=== PATIENT | male | born 1935 | race Hispanic/Latino ===

== ENCOUNTER → 2018-12-03 | Outpatient (CLI) | payer MEDICARE ==
[~2018-12-03] MED LIST: AMLODIPINE PO; HYDR25TA PO; LEVO25TA54 PO; LOSARTAN PO; METOPROLOL PO; PRAV20TA4 PO
== END | disposition home or self-care (01) ==
LOC: SHCH 11:01
PROVIDERS: ATTEND Internal Medicine Cardiovascular Disease
DX: I10 Essential (primary) hypertension (principal)
CPT/HCPCS: 93306

== ENCOUNTER 2020-02-03 05:51 | Day surgery (SDC) | payer MEDICARE ==
[2020-02-02 13:25] LABS: BASOPHILS % (AUTO) 1.1 % (0.0-5.0); EOSINOPHILS % (AUTO) 3.9 % (0.0-8.0); HEMATOCRIT 45.2 % (42-54); LYMPHOCYTES % (AUTO) 28.1 % (21.0-51.0); MEAN CORPUSCULAR HEMOGLOBIN 28.9 pg (27.0-33.0); MEAN CORPUSCULAR HGB CONC 32.7 g/dL (32.0-36.0); MEAN CORPUSCULAR VOLUME 88.3 fL (79-99); MONOCYTES % (AUTO) 10.7 % (3.0-13.0); NEUTROPHILS % (AUTO) 55.8 % (40.0-77.0); PLATELET COUNT (AUTO) 176 K/uL (130-400); RED BLOOD CELL COUNT(AUTO) 5.12 MIL/uL (4.50-6.20); RED CELL DISTRIBUTION WIDTH 13.7 % (11.0-15.5); WHITE BLOOD COUNT (AUTO) 5.3 K/uL (4.8-10.8)
[2020-02-02 13:37] LABS: INR 1.08 (0.85-1.15); PARTIAL THROMBOPLASTIN TIME 28.5 SEC (26.3-35.5); PROTHROMBIN TIME 11.6 SEC (9.6-11.6)
[2020-02-02 13:39] LABS: CREATININE 1.3 mg/dL (0.5-1.5); POTASSIUM 3.8 mmol/L (3.5-5.1)
[2020-02-02 13:47] VITALS: BP 155/74
[~2020-02-03] VITALS: Ht 162.6 cm; Wt 68.0 kg
[2020-02-03] VITALS (9 sets, daily range): BP systolic 115–159; BP diastolic 65–78
[~2020-02-03 05:51] MED LIST changes: +AMLO-258 PO; -AMLODIPINE PO; -HYDR25TA PO; -LEVO25TA54 PO; +LEVO50TA11 PO; +LEVO75TA10 PO; +LOSA50TA64 PO; -LOSARTAN PO; -METOPROLOL PO
[2020-02-03] MEDS ORDERED: AMLO-258 PO (07:05)
[2020-02-03] MEDS ORDERED: LIDOCAINE HCL 1% MDV 50ML VIAL ONE (07:22)
[2020-02-03] MEDS ORDERED: BUPIVACAINE/PF 0.25% 30ML VIAL IJ ONE (07:22)
[2020-02-03] MEDS ORDERED: CLINDAMYCIN 600 MG/D5% WATER 100 ML IV ONE (07:40)
[2020-02-03] MEDS ORDERED: SODIUM CHLORIDE 0.9% 1000ML 1,000 ML IV SCH (08:00)
[2020-02-03] MEDS ORDERED: FENTANYL CITRATE PF 50 MCG/1 ML 2ML VIAL ONE (08:02)
[2020-02-03] MEDS ORDERED: MIDAZOLAM HCL 1 MG/ML 2ML VIAL ONE (08:02)
[2020-02-03] MEDS ORDERED: IODIXANOL 320 MG/ML 100 ML VIAL ONE (08:02)
[2020-02-03] MEDS ORDERED: SODIUM BICARB 50MEQ 50ML VIAL ONE (08:07)
== END 2020-02-03 13:05 | disposition home or self-care (01) ==
LOC: DAH 05:51
PROVIDERS: ATTEND Internal Medicine Cardiovascular Disease
DX: I44.1 Atrioventricular block, second degree (principal); R00.1 Bradycardia, unspecified; I10 Essential (primary) hypertension; E03.9 Hypothyroidism, unspecified; R53.83 Other fatigue; Z79.82 Long term (current) use of aspirin; Z79.01 Long term (current) use of anticoagulants; Z79.899 Other long term (current) drug therapy
CPT/HCPCS: 33208; 36415; 80048; 85025; 85610; 85730; 93005; A4215; A4216; A4221; A4222; A4223 ×3; A4606; A4663; C1785; C1898 ×2; J2250; J3010; J3490 ×4; Q9967; 99156; 99157

== ENCOUNTER 2020-12-21 07:57 | Day surgery (SDC) | payer MEDICARE ==
[2020-12-17 14:50] LABS: BASOPHILS % (AUTO) 0.8 % (0.0-5.0); EOSINOPHILS % (AUTO) 4.6 % (0.0-8.0); HEMATOCRIT 40.4 % (42-54); LYMPHOCYTES % (AUTO) 19.2 % (21.0-51.0); MEAN CORPUSCULAR HEMOGLOBIN 29.6 pg (27.0-33.0); MEAN CORPUSCULAR HGB CONC 33.4 g/dL (32.0-36.0); MEAN CORPUSCULAR VOLUME 88.6 fL (79-99); MONOCYTES % (AUTO) 12.3 % (3.0-13.0); NEUTROPHILS % (AUTO) 62.7 % (40.0-77.0); PLATELET COUNT (AUTO) 144 K/uL (130-400); RED BLOOD CELL COUNT(AUTO) 4.56 MIL/uL (4.50-6.20); RED CELL DISTRIBUTION WIDTH 14.6 % (11.0-15.5); WHITE BLOOD COUNT (AUTO) 4.8 K/uL (4.8-10.8)
[2020-12-17 14:54] LABS: APPEARANCE,URINE Clear (CLEAR); BILIRUBIN,URINE Negative (NEGATIVE); COLOR,URINE Yellow (YELLOW); GLUCOSE, URINE (UA) Negative (NEGATIVE); KETONES,URINE Trace mg/dL (NEGATIVE); LEUKOCYTE ESTERASE ,URINE Trace (NEGATIVE); NITRATE,URINE Negative (NEGATIVE); OCCULT BLOOD,URINE Negative (NEGATIVE); PH,URINE 6.5 (5.0-8.0); PROTEIN,URINE POS 1+ mg/dL (NEGATIVE)
[2020-12-17 15:09] LABS: POTASSIUM 3.5 mmol/L (3.5-5.1)
[2020-12-17 15:13] LABS: INR 1.15 (0.85-1.15); PROTHROMBIN TIME 12.4 SEC (9.6-11.6)
[2020-12-17 15:14] LABS: PARTIAL THROMBOPLASTIN TIME 29.1 SEC (26.3-35.5)
[2020-12-17 15:15] LABS: BACTERIA,URINE Rare /HPF (None Seen); MUCUS,URINE Few LPF (None Seen); RBC,URINE 0-1 /HPF (0-1); SQUAMOUS EPITHELIAL CELL,UR Rare /HPF (0-2); WBC,URINE 0-1 /HPF (0-1)
[2020-12-20 09:20] VITALS: BP 135/57
[2020-12-21] VITALS (10 sets, daily range): BP systolic 112–149; BP diastolic 59–72
[~2020-12-21] VITALS: Ht 157.5 cm; Wt 65.0 kg
[~2020-12-21 07:57] MED LIST changes: +SODIUM CHLORIDE 0.9% 500ML 500 ML IV SCH
[2020-12-21] MEDS ORDERED: SODIUM CHLORIDE 0.9% 1000ML 1,000 ML IV ONE (09:45)
[2020-12-21] MEDS ORDERED: IOHEXOL-350 50ML VIAL IV ONE (10:35)
[2020-12-21] MEDS ORDERED: IOHEXOL 350 MG/ML 100ML INFUS..BTL IV ONE (10:35)
[2020-12-21] MEDS ORDERED: BIVALIRUDIN 250 MG/VIAL IV ONE (10:35)
[2020-12-21] MEDS ORDERED: NITROGLYCERIN 2 MG/VIAL VIAL IV ONE (10:35)
[2020-12-21] MEDS ORDERED: IOHEXOL-350 75 ML VIAL IV ONE (10:35)
[2020-12-21] MEDS ORDERED: HEPARIN SODIUM 1000UNIT/ML 10ML VIAL ONE (10:35)
[2020-12-21] MEDS ORDERED: SODIUM BICARB 50MEQ 50ML VIAL 50 ML ONE (10:35)
[2020-12-21] MEDS ORDERED: LIDOCAINE HCL 2% 20ML ONE (10:36)
[2020-12-21] MEDS ORDERED: NICARDIPINE HCL 25 MG/10 ML ML IV ONE (10:45)
[2020-12-21] MEDS ORDERED: MIDAZOLAM HCL 1 MG/ML 2ML VIAL ONE (10:46)
[2020-12-21] MEDS ORDERED: FENTANYL CITRATE PF 50 MCG/1 ML 2ML VIAL ONE (10:46)
[2020-12-21] MEDS ORDERED: SODIUM CHLORIDE 0.9% 1000ML 1,000 ML IV SCH (12:15)
== END 2020-12-21 16:10 | disposition home or self-care (01) ==
LOC: DAH 07:57
PROVIDERS: ATTEND Internal Medicine Cardiovascular Disease
DX: I25.119 Atherosclerotic heart disease of native coronary artery with unspecified angina pectoris (principal); I47.2 Ventricular tachycardia; I10 Essential (primary) hypertension; E03.9 Hypothyroidism, unspecified; Z95.0 Presence of cardiac pacemaker; Z79.899 Other long term (current) drug therapy; Z79.890 Hormone replacement therapy; Z79.01 Long term (current) use of anticoagulants; Z98.890 Other specified postprocedural states; Z88.0 Allergy status to penicillin
CPT/HCPCS: 36415; 71045; 80048; 81001; 85025; 85610; 85730; 93005; 93458; A6258; C1769 ×2; C1887; C1894; J1644 ×2; J2250; J3010; J3490 ×4; J7030; Q9965; Q9967 ×2; 99156; 99157; J0583

== ENCOUNTER 2023-08-15 19:31 | Emergency (ER) | payer MEDICARE ==
[~2023-08-15 19:31] MED LIST changes: -SODIUM CHLORIDE 0.9% 500ML 500 ML IV SCH
[2023-08-15 20:23] LABS: BASOPHILS # (AUTO) 0.04 K/uL (0.00-0.20); BASOPHILS % (AUTO) 0.6 % (0.0-5.0); EOSINOPHILS % (AUTO) 3.2 % (0.0-8.0); HEMATOCRIT 41.2 % (42-54); IMMATURE GRANULOCYTE ABSOLUTE 0.04 K/uL (0-1); LYMPHOCYTES # (AUTO) 0.6 K/uL (1.0-4.8); LYMPHOCYTES % (AUTO) 9.5 % (21.0-51.0); MEAN CORPUSCULAR HEMOGLOBIN 29.2 pg (27.0-33.0); MEAN CORPUSCULAR VOLUME 88.6 fL (79-99); MONOCYTES # (AUTO) 0.6 K/uL (0.1-1.0); MONOCYTES % (AUTO) 10.2 % (3.0-13.0); NEUTROPHILS # (AUTO) 4.7 K/uL (1.8-7.7); NEUTROPHILS % (AUTO) 75.9 % (40.0-77.0); PLATELET COUNT (AUTO) 148 K/uL (130-400); RED BLOOD CELL COUNT(AUTO) 4.65 MIL/uL (4.50-6.20); RED CELL DISTRIBUTION WIDTH 13.5 % (11.0-15.5); WHITE BLOOD COUNT (AUTO) 6.2 K/uL (4.8-10.8)
[2023-08-15 20:49] LABS: POTASSIUM 3.7 mmol/L (3.5-5.1)
[2023-08-15 20:52] LABS: ALBUMIN 3.7 g/dL (3.5-5.0); BILIRUBIN,TOTAL 1.1 mg/dL (0.2-1.0); TOTAL PROTEIN, SERUM 6.8 g/dL (6.0-8.3)
[2023-08-15 21:16] VITALS: BP 156/66; PULSE 56; RESP 16; O2SAT 95
[2023-08-15 21:27] LABS: RAPID GROUP A STREP negative (NEGATIVE)
[2023-08-15 21:30] LABS: SARS-CoV-2, RNA, NAAT NEGATIVE SARS CoV-2 (NEGATIVE)
[2023-08-15 21:34] LABS: INFLUENZA TYPE A Negative For Type A (NEGATIVE); INFLUENZA TYPE B Negative For Type B (NEGATIVE)
== END 2023-08-15 22:02 | disposition home or self-care (01) ==
LOC: EDH 19:31
DX: R42 Dizziness and giddiness (principal); I12.9 Hypertensive chronic kidney disease with stage 1 through stage 4 chronic kidney disease, or unspecified chronic kidney disease; N18.9 Chronic kidney disease, unspecified; Z88.0 Allergy status to penicillin; Z95.0 Presence of cardiac pacemaker; Z85.46 Personal history of malignant neoplasm of prostate; Z20.822 Contact with and (suspected) exposure to COVID-19
CPT/HCPCS: 99284; 71045; 87635; 84484; 80053; 85025; 87880; 87804 ×2; 36415; 93005; C9803

== ENCOUNTER → 2023-08-24 | Outpatient (CLI) | payer MEDICARE ==
[2023-08-24 11:32] LABS: BASOPHILS # (AUTO) 0.06 K/uL (0.00-0.20); BASOPHILS % (AUTO) 1.1 % (0.0-5.0); EOSINOPHILS % (AUTO) 7.5 % (0.0-8.0); HEMATOCRIT 42.1 % (42-54); IMMATURE GRANULOCYTE ABSOLUTE 0.03 K/uL (0-1); LYMPHOCYTES # (AUTO) 1.8 K/uL (1.0-4.8); LYMPHOCYTES % (AUTO) 34.1 % (21.0-51.0); MEAN CORPUSCULAR HEMOGLOBIN 29.5 pg (27.0-33.0); MEAN CORPUSCULAR HGB CONC 32.5 g/dL (32.0-36.0); MEAN CORPUSCULAR VOLUME 90.5 fL (79-99); MONOCYTES # (AUTO) 0.7 K/uL (0.1-1.0); MONOCYTES % (AUTO) 12.6 % (3.0-13.0); NEUTROPHILS # (AUTO) 2.3 K/uL (1.8-7.7); NEUTROPHILS % (AUTO) 44.1 % (40.0-77.0); PLATELET COUNT (AUTO) 182 K/uL (130-400); RED BLOOD CELL COUNT(AUTO) 4.65 MIL/uL (4.50-6.20); RED CELL DISTRIBUTION WIDTH 13.6 % (11.0-15.5); WHITE BLOOD COUNT (AUTO) 5.3 K/uL (4.8-10.8)
[2023-08-24 11:50] LABS: ALBUMIN 3.8 g/dL (3.5-5.0); BILIRUBIN,TOTAL 1.8 mg/dL (0.2-1.0); CREATININE 1.2 mg/dL (0.5-1.5); MAGNESIUM 2.1 mg/dL (1.80-2.40); TOTAL PROTEIN, SERUM 6.8 g/dL (6.0-8.3)
== END | disposition home or self-care (01) ==
LOC: LAB 08:05
PROVIDERS: ATTEND Internal Medicine Cardiovascular Disease
DX: I10 Essential (primary) hypertension (principal); I08.0 Rheumatic disorders of both mitral and aortic valves
CPT/HCPCS: 36415; 80053; 80061; 83735; 85025

== ENCOUNTER → 2024-05-21 | Outpatient (CLI) | payer MEDICARE ==
[2024-05-21 12:10] LABS: BASOPHILS # (AUTO) 0.06 K/uL (0.00-0.20); BASOPHILS % (AUTO) 1.2 % (0.0-5.0); EOSINOPHILS % (AUTO) 6.1 % (0.0-8.0); HEMATOCRIT 43.2 % (42-54); IMMATURE GRANULOCYTE ABSOLUTE 0.02 K/uL (0-1); LYMPHOCYTES # (AUTO) 1.4 K/uL (1.0-4.8); LYMPHOCYTES % (AUTO) 28.2 % (21.0-51.0); MEAN CORPUSCULAR HEMOGLOBIN 29.5 pg (27.0-33.0); MEAN CORPUSCULAR HGB CONC 33.6 g/dL (32.0-36.0); MONOCYTES # (AUTO) 0.6 K/uL (0.1-1.0); MONOCYTES % (AUTO) 12.9 % (3.0-13.0); NEUTROPHILS # (AUTO) 2.5 K/uL (1.8-7.7); NEUTROPHILS % (AUTO) 51.2 % (40.0-77.0); PLATELET COUNT (AUTO) 210 K/uL (130-400); RED BLOOD CELL COUNT(AUTO) 4.91 MIL/uL (4.50-6.20); RED CELL DISTRIBUTION WIDTH 14.1 % (11.0-15.5); WHITE BLOOD COUNT (AUTO) 4.9 K/uL (4.8-10.8)
[2024-05-21 12:31] LABS: ALBUMIN 3.8 g/dL (3.5-5.0); BILIRUBIN,TOTAL 1.6 mg/dL (0.2-1.0); CREATININE 1.1 mg/dL (0.5-1.3); POTASSIUM 3.3 mmol/L (3.5-5.1); TOTAL PROTEIN, SERUM 6.9 g/dL (6.0-8.3)
== END | disposition home or self-care (01) ==
LOC: LAB 09:29
PROVIDERS: ATTEND Internal Medicine Cardiovascular Disease
DX: I11.0 Hypertensive heart disease with heart failure (principal); I50.22 Chronic systolic (congestive) heart failure; Z95.0 Presence of cardiac pacemaker
CPT/HCPCS: 36415; 80053; 80061; 85025